=== PATIENT | male | born 2000 | race Caucasian/White ===

== ENCOUNTER 2018-06-05 15:00 | Emergency (ER) | payer OTHER ==
[~2018-06-05] VITALS: Ht 170.2 cm; Wt 70.9 kg
[2018-06-05] MEDS ORDERED: PERCOCET 5MG/325MG TAB PO ONE (15:45)
--- NOTE | 2018-06-05 16:56 | REP ---
Clinical: Right testicular pain and swelling. Comparison: Report dated 05/16/2018. Technique: Real time xie scale and color Doppler evaluation using linear high frequency and curved array transducers. Findings: While vascularity to the bilateral testicles and epididymi are relatively symmetric and there is no evidence for acute infectious/inflammatory process or torsion, the right testicle is mildly enlarged and somewhat heterogeneous having scattered anechoic striations. No discrete right testicular or epididymal mass lesion is identified. No hydroceles. No varicoceles. Left testicle and epididymis appear normal. Right testicle measures 5.4 x 3.2 x 3.6 cm. Left testicle measures 4.8 x 2.8 x 3.0 cm. Impression: Somewhat heterogeneous enlargement to the right testicle similar to prior report and without focal, discrete abnormality. No evidence for hyperemia or torsion. Findings are nonspecific and may represent an infiltrative process including but not limited to lymphoma, leukemia, disseminated intravascular coagulation. Correlation and follow up recommended. Electronically Signed by Arnol Segal MD 06/05/2018 04:48 P
[2018-06-05 17:15] VITALS: BP 120/64
[2018-06-05] MEDS ORDERED: PERC5TAB12 PO (17:22)
[2018-06-05 20:01] LABS: CHLAMYDIA DNA AMPLIFICATION NEGATIVE (NEGATIVE); GC DNA AMPLIFICATION NEGATIVE (NEGATIVE)
--- NOTE | 2018-06-08 12:21 | ED PDOC ---
Post-Departure Follow-Up ft jay richardson faxed formal report of scrotal us for fu. additionally certified ry er sent to pt. please sure pt is aware of differential diaagnosis and formal report. needs urgent fu Juan Perez MD Jun 08, 2018 12:21
== END 2018-06-05 17:35 | disposition home or self-care (01) ==
LOC: M ED 15:00
DX: N50.811 Right testicular pain (principal)

== ENCOUNTER 2018-06-10 11:30 | Emergency (ER) | payer OTHER ==
[~2018-06-10] VITALS: Ht 170.2 cm; Wt 71.4 kg
[~2018-06-10 11:30] MED LIST: PERC5TAB12 PO
[2018-06-10 11:31] VITALS: BP 169/75
[2018-06-10] MEDS ORDERED: PERC5TAB12 PO (12:10)
== END 2018-06-10 12:18 | disposition home or self-care (01) ==
LOC: M ED 11:30
DX: N50.811 Right testicular pain (principal); G89.29 Other chronic pain; N50.89 Other specified disorders of the male genital organs; F17.210 Nicotine dependence, cigarettes, uncomplicated

== ENCOUNTER 2018-06-22 13:07 | Emergency (ER) | payer OTHER ==
[~2018-06-22] VITALS: Ht 170.2 cm; Wt 70.9 kg
[2018-06-22 14:23] LABS: APPEARANCE, URINE CLEAR (CLEAR); BACTERIA, URINE AUTO NEGATIVE (NEGATIVE); BILIRUBIN, URINE AUTO NEGATIVE (NEGATIVE); BLOOD, URINE BLOOD NEGATIVE (NEGATIVE); COLOR, URINE YELLOW (YELLOW); GLUCOSE, URINE (UA) AUTO NEGATIVE (NEGATIVE); KETONE, URINE AUTO NEGATIVE (NEGATIVE); LEUKOCYTE ESTERASE, URINE AUTO NEGATIVE (NEGATIVE); NITRITE, URINE AUTO NEGATIVE (NEGATIVE); PROTEIN, URINE AUTO NEGATIVE (NEGATIVE); RBC, URINE AUTO 1 /HPF (0-3); SPECIFIC GRAVITY URINE AUTO 1.013 (1.002-1.035); SQUAMOUS EPITHELIAL CELL UR AU 0 /HPF (0-6); UROBILINOGEN, URINE AUTO 0.2 mg/dL (0.0-2.0); WBC, URINE AUTO 0 /HPF (0-3)
[2018-06-22] MEDS ORDERED: PERC5TAB12 PO ×2 (15:06→15:14)
[2018-06-22 15:12] VITALS: BP 116/60
[2018-06-22 16:08] LABS: CHLAMYDIA DNA AMPLIFICATION NEGATIVE (NEGATIVE); GC DNA AMPLIFICATION NEGATIVE (NEGATIVE)
== END 2018-06-22 15:14 | disposition home or self-care (01) ==
LOC: M ED 13:07
DX: N50.811 Right testicular pain (principal); N50.89 Other specified disorders of the male genital organs

== ENCOUNTER 2018-10-24 10:00 | Emergency (ER) | payer OTHER ==
[~2018-10-24] VITALS: Ht 170.2 cm; Wt 72.7 kg
[2018-10-24 11:09] LABS: BASO % 0.4 % (0.0-1.0); EOS # 0.1 10^3/uL (0.0-0.50); EOS % 2.1 % (0.0-3.0); HEMATOCRIT 40.6 % (42.0-52.0); HEMOGLOBIN 14.1 g/dl (13.5-17.5); LYMPH # 2.6 10^3/uL (1.5-6.5); LYMPH % 38.7 % (24.0-44.0); MEAN CORPUSCULAR HEMOGLOBIN 31.3 pg (27.0-33.0); MEAN CORPUSCULAR HGB CONC 34.7 g/dl (32.0-36.5); MEAN CORPUSCULAR VOLUME 90.2 fl (80.0-96.0); MONO # 0.5 10^3/uL (0.0-0.8); NEUTROPHILS # 3.4 10^3/uL (1.8-7.7); NEUTROPHILS % 50.7 % (36.0-66.0); PLATELET COUNT, AUTOMATED 192 10^3/uL (150-450); WHITE BLOOD COUNT 6.8 10^3/uL (4.0-10.0)
[2018-10-24 11:41] LABS: ALT/SGPT 22 U/L (12-78); BILIRUBIN,DIRECT < 0.1 MG/DL (0.0-0.2); BILIRUBIN,TOTAL 0.2 MG/DL (0.2-1.0); BLOOD UREA NITROGEN 15 MG/DL (7-18); CALCIUM LEVEL 9.4 MG/DL (8.5-10.1); CARBON DIOXIDE LEVEL 29 MEQ/L (21-32); CHLORIDE LEVEL 106 MEQ/L (98-107); CPK CREATINE PHOSPHOKINASE 214 U/L (39-308); CREATININE FOR GFR 1.06 MG/DL (0.70-1.30); FREE T4 1.05 NG/DL (0.78-1.33); GLUCOSE, FASTING 87 MG/DL (70-100); LIPASE 93 U/L (73-393); MB/CK RELATIVE INDEX 0.93 (< OR =4); POTASSIUM SERUM 4.1 MEQ/L (3.5-5.1); SODIUM LEVEL 140 MEQ/L (136-145); TOTAL PROTEIN 7.1 GM/DL (6.4-8.2); TROPONIN I < 0.02 NG/ML (< 0.10)
--- NOTE | 2018-10-24 11:44 | REP ---
CHEST, SINGLE VIEW: There is no evidence of acute infiltrate. No pleural effusion is seen. The heart is normal in size. The mediastinal silhouette is unremarkable. The visualized osseous structures are intact. IMPRESSION: No acute pulmonary disease. Electronically Signed by Ran Ramirez MD 10/24/2018 04:20 P
[2018-10-24 12:50] VITALS: BP 128/58
[2018-10-24 12:54] LABS: AMPHETAMINES LEVEL URINE NEGATIVE (NEGATIVE); BARBITURATES URINE NEGATIVE (NEGATIVE); BENZODIAZEPINES URINE NEGATIVE (NEGATIVE); CANNABINOIDS URINE NEGATIVE (NEGATIVE); COCAINE METABOLITE URINE NEGATIVE (NEGATIVE); METHADONE URINE NEGATIVE (NEGATIVE); OPIATES URINE NEGATIVE (NEGATIVE); PHENCYCLIDINE URINE NEGATIVE (NEGATIVE)
--- NOTE | 2018-10-25 05:45 | ECGEPIP ---
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
== END 2018-10-24 13:11 | disposition home or self-care (01) ==
LOC: M ED 10:00
DX: R00.2 Palpitations (principal); R07.9 Chest pain, unspecified; Z79.899 Other long term (current) drug therapy

== ENCOUNTER 2018-10-31 17:38 | Emergency (ER) | payer OTHER ==
[~2018-10-31] VITALS: Ht 170.2 cm; Wt 72.7 kg
[2018-10-31 18:38] LABS: BASO % 0.7 % (0.0-1.0); EOS # 0.2 10^3/uL (0.0-0.50); EOS % 2.6 % (0.0-3.0); HEMATOCRIT 39.5 % (42.0-52.0); HEMOGLOBIN 14.2 g/dl (13.5-17.5); LYMPH # 1.9 10^3/uL (1.5-6.5); LYMPH % 32.7 % (24.0-44.0); MEAN CORPUSCULAR HGB CONC 35.9 g/dl (32.0-36.5); MONO # 0.5 10^3/uL (0.0-0.8); MONO % 8.7 % (0.0-5.0); NEUTROPHILS # 3.2 10^3/uL (1.8-7.7); NEUTROPHILS % 55.1 % (36.0-66.0); PLATELET COUNT, AUTOMATED 192 10^3/uL (150-450); RED BLOOD COUNT 4.44 10^6/uL (4.30-6.10); WHITE BLOOD COUNT 5.8 10^3/uL (4.0-10.0)
[2018-10-31 18:52] LABS: INR 1.12; PROTHROMBIN TIME 14.1 SECONDS (11.8-14.0)
[2018-10-31 19:05] LABS: BLOOD UREA NITROGEN 18 MG/DL (7-18); CALCIUM LEVEL 8.9 MG/DL (8.5-10.1); CARBON DIOXIDE LEVEL 26 MEQ/L (21-32); CHLORIDE LEVEL 108 MEQ/L (98-107); CK-MB VALUE MASS < 1.0 NG/ML (<3.6); CPK CREATINE PHOSPHOKINASE 143 U/L (39-308); CREATININE FOR GFR 1.31 MG/DL (0.70-1.30); ETHYL ALCOHOL (ETHANOL) < 0.003 % (0.000-0.010); FREE T4 1.07 NG/DL (0.78-1.33); GLUCOSE, FASTING 84 MG/DL (70-100); MAGNESIUM LEVEL 2.3 MG/DL (1.4-2.0); POTASSIUM SERUM 3.8 MEQ/L (3.5-5.1); SODIUM LEVEL 142 MEQ/L (136-145); TROPONIN I < 0.02 NG/ML (< 0.10)
--- NOTE | 2018-10-31 19:07 | REP ---
Clinical: Syncope . Comparison: None . Findings: The ventricles, sulci, and cisterns are normal in position and appearance. Ramirez-white differentiation is maintained. No acute intracranial hemorrhage, mass/mass effect, pathology or trauma/injury. No evidence for acute infarction. No extra-axial fluid collection. Calvarium is intact. Paranasal sinuses and mastoid air cells are clear. Impression: Normal noncontrast head CT. No evidence for acute intracranial pathology or trauma/injury. Electronically Signed by Arnol Segal MD 10/31/2018 06:58 P
--- NOTE | 2018-10-31 19:11 | REP ---
Clinical: Syncope . Comparison: 10/24/2018 . Technique: PA and lateral. Findings: The mediastinum and cardiac silhouette are normal. The lung chen are clear and without acute consolidation, effusion, or pneumothorax. The skeletal structures are intact and normal. Impression: 1. No acute cardiopulmonary process. Electronically Signed by Arnol Segal MD 10/31/2018 07:02 P
[2018-10-31 20:07] LABS: AMPHETAMINES LEVEL URINE NEGATIVE (NEGATIVE); BARBITURATES URINE NEGATIVE (NEGATIVE); BENZODIAZEPINES URINE NEGATIVE (NEGATIVE); CANNABINOIDS URINE NEGATIVE (NEGATIVE); COCAINE METABOLITE URINE NEGATIVE (NEGATIVE); METHADONE URINE NEGATIVE (NEGATIVE); OPIATES URINE NEGATIVE (NEGATIVE); PHENCYCLIDINE URINE NEGATIVE (NEGATIVE)
[2018-10-31 20:25] VITALS: BP 104/59
--- NOTE | 2018-11-01 15:31 | ECGEPIP ---
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
== END 2018-10-31 20:41 | disposition home or self-care (01) ==
LOC: M ED 17:38
DX: R55 Syncope and collapse (principal); Z87.891 Personal history of nicotine dependence
CPT/HCPCS: 36415; 70450; 71046; 80048; 80307; 82550; 82553; 83605; 83735; 84439; 84443; 84484; 85025; 85610; 93005; 93041; 94760; 99285; G0480

== ENCOUNTER 2018-11-02 10:04 | Observation (INO) | payer OTHER ==
[~2018-11-02] VITALS: Ht 170.2 cm; Wt 69.9 kg
[2018-11-02 11:16] LABS: BASO # 0.1 10^3/uL (0.0-0.2); BASO % 0.9 % (0.0-1.0); EOS # 0.6 10^3/uL (0.0-0.50); EOS % 8.2 % (0.0-3.0); HEMOGLOBIN 14.2 g/dl (13.5-17.5); LYMPH % 29.5 % (24.0-44.0); MEAN CORPUSCULAR HEMOGLOBIN 31.8 pg (27.0-33.0); MEAN CORPUSCULAR HGB CONC 35.5 g/dl (32.0-36.5); MEAN CORPUSCULAR VOLUME 89.7 fl (80.0-96.0); MONO # 0.5 10^3/uL (0.0-0.8); MONO % 6.6 % (0.0-5.0); NEUTROPHILS # 3.7 10^3/uL (1.8-7.7); NEUTROPHILS % 54.7 % (36.0-66.0); PLATELET COUNT, AUTOMATED 187 10^3/uL (150-450); RED BLOOD COUNT 4.46 10^6/uL (4.30-6.10); WHITE BLOOD COUNT 6.8 10^3/uL (4.0-10.0)
[2018-11-02 11:26] LABS: INR 1.14; PROTHROMBIN TIME 14.3 SECONDS (11.8-14.0)
[2018-11-02 11:27] LABS: PARTIAL THROMBOPLASTIN TIME 30.9 SECONDS (25.0-38.4)
[2018-11-02 11:47] LABS: ALBUMIN 4.1 GM/DL (3.2-5.2); ALT/SGPT 22 U/L (12-78); BILIRUBIN,DIRECT 0.1 MG/DL (0.0-0.2); BILIRUBIN,TOTAL 0.4 MG/DL (0.2-1.0); BLOOD UREA NITROGEN 19 MG/DL (7-18); CALCIUM LEVEL 9.1 MG/DL (8.5-10.1); CARBON DIOXIDE LEVEL 28 MEQ/L (21-32); CHLORIDE LEVEL 108 MEQ/L (98-107); CK-MB VALUE MASS 1.3 NG/ML (<3.6); CPK CREATINE PHOSPHOKINASE 136 U/L (39-308); CREATININE FOR GFR 1.15 MG/DL (0.70-1.30); GLUCOSE, FASTING 87 MG/DL (70-100); LIPASE 84 U/L (73-393); MB/CK RELATIVE INDEX 0.96 (< OR =4); POTASSIUM SERUM 3.8 MEQ/L (3.5-5.1); SODIUM LEVEL 141 MEQ/L (136-145); THYROID STIMULATING HORMONE 0.858 uIU/ML (0.463-3.98); TOTAL PROTEIN 6.9 GM/DL (6.4-8.2); TROPONIN I < 0.02 NG/ML (< 0.10)
--- NOTE | 2018-11-02 11:59 | REP ---
Clinical: Acute chest pain . Comparison: 10/31/2018 . Technique: PA and lateral. Findings: The mediastinum and cardiac silhouette are normal. The lung chen are clear and without acute consolidation, effusion, or pneumothorax. The skeletal structures are intact and normal. Impression: 1. No acute cardiopulmonary process. Electronically Signed by Arnol Segal MD 11/02/2018 11:51 A
[2018-11-02 12:16] LABS: AMPHETAMINES LEVEL URINE NEGATIVE (NEGATIVE); BARBITURATES URINE NEGATIVE (NEGATIVE); BENZODIAZEPINES URINE NEGATIVE (NEGATIVE); CANNABINOIDS URINE NEGATIVE (NEGATIVE); COCAINE METABOLITE URINE NEGATIVE (NEGATIVE); METHADONE URINE NEGATIVE (NEGATIVE); OPIATES URINE NEGATIVE (NEGATIVE); PHENCYCLIDINE URINE NEGATIVE (NEGATIVE)
--- NOTE | 2018-11-02 12:19 | REP ---
Clinical: Slurred speech . Comparison: 10/31/2018 . Findings: The ventricles, sulci, and cisterns are normal in position and appearance. Ramirez-white differentiation is maintained. No acute intracranial hemorrhage, mass/mass effect, pathology or trauma/injury. No evidence for acute infarction. No extra-axial fluid collection. Calvarium is intact. Paranasal sinuses and mastoid air cells are clear. Impression: Normal noncontrast head CT. No evidence for acute intracranial pathology or trauma/injury. Electronically Signed by Arnol Segal MD 11/02/2018 12:11 P
[2018-11-02] MEDS ORDERED: CLAR10CA3 PO (12:31)
[2018-11-02] MEDS ORDERED: ISOVUE-370 76% 100ML VIAL (Q9967) As Ordered ONE (12:42)
--- NOTE | 2018-11-02 13:20 | REP ---
Clinical: Acute chest pain. Syncope. Technique: Axial contrast enhanced images from the thoracic inlet to the upper abdomen using 100 ml Isovue 370 intravenous contrast material with coronal and sagittal re-formations. Findings: Satisfactory enhancement of the pulmonary vasculature is achieved and no filling defects are identified to suggest pulmonary embolus. Thoracic aorta is normal caliber without aneurysm or dissection. Heart and pericardium are normal. Bilateral lung chen are well aerated and clear without acute pulmonary parenchymal consolidation or atelectasis. No nodule or mass lesion. No pleural effusion/reaction. No pneumothorax. No adenopathy. Impression: No evidence for pulmonary embolus. No acute pleuroparenchymal or mediastinal process. Electronically Signed by Arnol Segal MD 11/02/2018 01:12 P
[2018-11-02] MEDS ORDERED: ACETAMINOPHEN TAB 650MG DOSE (2X325MG) PO PRN (15:15)
[2018-11-02] MEDS ORDERED: MOM 30ML SUSPENSION UDC PO PRN (15:15)
[2018-11-02] MEDS ORDERED: MAALOX 30 ML SUSP *UDC PO PRN (15:15)
--- NOTE | 2018-11-02 15:44 | HPEPDOC ---
General Date of Admission Nov 02, 2018 at 15:01 Date of Service: Nov 02, 2018 Attending Physician: GUME MENDEZ MD Chief Complaint The patient is a 17-year-old male admitted with a reason for visit of Syncopal Episodes. Source: Patient Timing/Duration: Week(s) (2 weeks) Severity: Moderate, Severe Associated Symptoms: Shortness of breath, Syncope Home Medications Scheduled Loratadine (Claritin) 10 Mg Capsule, 10 MG PO DAILY, (Reported) Allergies Coded Allergies: No Known Allergies (Unverified , 10/31/18) Past Medical History Medical History None, but patient explains that he once in a while gets bronchitis starts wheezing and he uses the inhaler and it goes away. I'm not sure whether he has exercise-induced asthma or asthma per se, but he never been diagnosed with Surgical History None Family History Significant Family History: No pertinent family hx Social History * Smoker: Denies Alcohol: Denies Drugs: denies Psychosocial History: No pertinent psych hx A-FIB/CHADSVASC A-FIB History Current/History of A-Fib/PAF?: No Review of Systems Constitutional: Denies: Chills, Fever, Malaise, Night Sweats, Weakness, Fatigue, Weight Loss, Lethargy, Other Eyes: Denies: Pain, Vision change, Conjunctivae inflammation, Eyelid inflammation, Redness, Other ENT: Denies: Head Aches, Ear Pain, Dysphagia, Sinus Congestion, Post Nasal Drip, Sore Throat, Epistaxis, Other Symptoms Skin: Denies: Rash, Lesions, Jaundice, Bruising, Itching, Dry, Breakdown, Nail Changes, Other Pulmonary: Reports: Dyspnea Cardiovascular: Reports: Chest Pain Gastrointestinal: Denies: Nausea, Vomiting, Abdominal Pain, Diarrhea, Const ipation, Melena, Hematochezia, Other Symptoms Genitourinary: Denies: Dysuria, Frequency, Incontinence, Hematuria, Retention, Other Symptoms Hematologic: Denies: Bruising, Bleeding Excessively, Petecchia, Purpura, Enlarged Lymph Nodes, Other Hematologic Endocrine: Denies: Polydipsia, Polyphagia, Polyuria, Heat Intolerance, Cold Intolerance, Other Endocrine Sx Musculoskeletal: Denies: Neck Pain, Back Pain, Shoulder Pain, Arm Pain, Hand Pain, Leg Pain, Foot Pain, Joint Pain, Muscle Pain, Spasms, Other Symptoms Neurological: Reports: Numbness Psych: Denies: Mood Normal, Anxiety, Depression, Memory Issues, Thoughts of Self Harm, Anger, Thoughts of Harming Other, Other Psych Physical Examination General Exam: Positive: Alert, Cooperative Eye Exam: Positive: PERRLA, Conjunctiva & lids normal ENT Exam: Positive: Atraumatic Neck Exam: Positive: Supple Chest Exam: Positive: Clear to auscultation, Normal air movement Heart Exam: Positive: Rate Normal, Normal S1 Telemetry: Positive: Sinus, Bradycardia Abdomen Exam: Positive: Normal bowel sounds, Soft Extremity Exam: Positive: Normal pulses Skin Exam: Positive: Nl turgor and temperature Neuro Exam: Positive: Normal Speech, Cranial Nerves 3-12 NL Psych Exam: Positive: Mental status NL, Mood NL, Oriented x 3 Vital Signs Vital Signs Date Time Temp Pulse Resp B/P (MAP) Pulse Ox O2 Delivery O2 Flow Rate FiO2 11/02/18 14:09 98.1 67 14 97 11/02/18 14:00 117/59 (78) 11/02/18 11:46 Room Air Laboratory Data Labs 24H Laboratory Tests 2 11/02/18 11:01: Immature Granulocyte % (Auto) 0.1, White Blood Count 6.8, Red Blood Count 4.46, Hemoglobin 14.2, Hematocrit 40.0L, Mean Corpuscular Volume 89.7, Mean Corpuscular Hemoglobin 31.8, Mean Corpuscular Hemoglobin Concent 35.5, Red Cell Distribution Width 11.7, Platelet Count 187, Neutrophils (%) (Auto) 54.7, Lymphocytes (%) (Auto) 29.5, Monocytes (%) (Auto) 6.6H, Eosinophils (%) (Auto) 8.2H, Basophils (%) (Auto) 0.9, Neutrophils # (Auto) 3.7, Lymphocytes # (Auto) 2 .0, Monocytes # (Auto) 0.5, Eosinophils # (Auto) 0.6H, Basophils # (Auto) 0.1, Nucleated Red Blood Cells % (auto) 0.0, Prothrombin Time 14.3H, Prothromb Time International Ratio 1.14, Activated Partial Thromboplast Time 30.9, Anion Gap 5L, Calcium Level 9.1, Aspartate Amino Transf (AST/SGOT) 19, Alanine Aminotransferase (ALT/SGPT) 22, Alkaline Phosphatase 42L, Total Bilirubin 0.4, Direct Bilirubin 0.1, Total Creatine Kinase 136, Creatine Kinase MB 1.3, Creatine Kinase MB Relative Index 0.96, Troponin I < 0.02, Total Protein 6.9, Albumin 4.1, Albumin/Globulin Ratio 1.46, Lipase 84, Thyroid Stimulating Hormone (TSH) 0.858, Free Thyroxine 1.00 11/02/18 11:38: Urine Color YELLOW, Urine Appearance CLEAR, Urine pH 6.0, Urine Specific [place] 1.010, Urine Protein NEGATIVE, Urine Glucose (UA) NEGATIVE, Urine Ketones NEGATIVE, Urine Blood NEGATIVE, Urine Nitrite NEGATIVE, Urine Bilirubin NEGATIVE, Urine Urobilinogen 0.2, Urine Leukocyte Esterase NEGATIVE, Urine WBC (Auto) 0, Urine RBC (Auto) 3, Urine Hyaline Casts (Auto) 0, Urine Bacteria (Auto) NEGATIVE, Urine Squamous Epithelial Cells 0, Urine Mucus (Auto) SMALL, Urine Sperm (Auto) , Urine Amphetamines Screen NEGATIVE, Urine Benzodiazepines Screen NEGATIVE, Urine Opiates Screen NEGATIVE, Urine Methadone Screen NEGATIVE, Urine Barbiturates Screen NEGATIVE, Urine Phencyclidine Screen NEGATIVE, Urine Cocaine Metabolite Screen NEGATIVE, Urine Cannabinoids Screen NEGATIVE CBC/BMP Laboratory Tests 11/02/18 11:01 Red Blood Count 4.46, Mean Corpuscular Volume 89.7, Mean Corpuscular Hemoglobin 31.8, Mean Corpuscular Hemoglobin Concent 35.5, Red Cell Distribution Width 11.7, Neutrophils (%) (Auto) 54.7, Lymphocytes (%) (Auto) 29.5, Monocytes (%) (Auto) 6.6 H, Eosinophils (%) (Auto) 8.2 H, Basophils (%) (Auto) 0.9, Neutrophils # (Auto) 3.7, Lymphocytes # (Auto) 2.0, Monocytes # (Auto) 0.5, Eos inophils # (Auto) 0.6 H, Basophils # (Auto) 0.1 Problems (1) Syncopal episodes Status: Acute Response to Treatment: Stable Problem Text: Etiology of syncope is unclear at the present time This is the second time he had a syncopal episode and was brought to ED All workup including CT head, CT of chest, chest x-ray and blood work essentially within normal limits Will order serial troponins Carotid Dopplers Echocardiogram Telemetry monitoring EKG in a.m. No need for DVT prophylaxis as patient is low risk for DVT, as he is ambulatory Close observation (2) Chest pain Status: Acute Response to Treatment: Stable Problem Text: Atypical chest pain, etiology unclear EKG essentially within normal limits First troponin negative. Serial troponins ordered Telemetry monitoring Echocardiogram Activity as tolerated Diet regular Plan / VTE VTE Prophylaxis Ordered?: No VTE Exclusion Mechanical Proph: Low Risk for VTE GUME MENDEZ MD Nov 02, 2018 15:44
--- NOTE | 2018-11-02 17:45 | REP ---
Bilateral carotid artery duplex ultrasound: Peak flow velocity analysis: RIGHT LEFT ICA Peak flow velocity cm/sec 116.2 108.5 ICA Diastolic flow velocity cm/sec 34.8 26 point Y ICA/CCA Ratio 0.80 0.92 ECA Peak flow velocity cm/sec 145.1 138.5 CCA Peak flow velocity cm/sec 161.4 191.6 There is minimal vascular atheromatous plaque bilaterally. The peak flow velocities are normal. The findings indicate no stenosis on the right on the left. There is antegrade flow in the vertebral arteries bilaterally. Impression: No stenosis on the right on the left. Electronically Signed by Ran Sutherland MD 11/02/2018 05:36 P
[2018-11-02 20:00] VITALS: BP 116/54
[2018-11-02] MEDS: DOCUSATE SODIUM 100 MG CAP PO SCH (20:58)
--- NOTE | 2018-11-02 21:42 | ECGEPIP ---
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
[2018-11-02 23:59] VITALS: BP 129/57
[2018-11-03 04:00] VITALS: BP 107/55
[2018-11-03 06:21] LABS: MEAN CORPUSCULAR HEMOGLOBIN 31.7 pg (27.0-33.0); MEAN CORPUSCULAR HGB CONC 35.7 g/dl (32.0-36.5); MEAN CORPUSCULAR VOLUME 88.8 fl (80.0-96.0); PLATELET COUNT, AUTOMATED 207 10^3/uL (150-450); RED BLOOD COUNT 4.73 10^6/uL (4.30-6.10); WHITE BLOOD COUNT 7.1 10^3/uL (4.0-10.0)
[2018-11-03 06:52] LABS: ALBUMIN 4.1 GM/DL (3.2-5.2); ALT/SGPT 22 U/L (12-78); BILIRUBIN,TOTAL 0.5 MG/DL (0.2-1.0); BLOOD UREA NITROGEN 16 MG/DL (7-18); CALCIUM LEVEL 8.8 MG/DL (8.5-10.1); CARBON DIOXIDE LEVEL 27 MEQ/L (21-32); CHLORIDE LEVEL 107 MEQ/L (98-107); CREATININE FOR GFR 1.07 MG/DL (0.70-1.30); GLUCOSE, FASTING 94 MG/DL (70-100); MAGNESIUM LEVEL 2.4 MG/DL (1.4-2.0); POTASSIUM SERUM 3.9 MEQ/L (3.5-5.1); SODIUM LEVEL 140 MEQ/L (136-145); TOTAL PROTEIN 7.2 GM/DL (6.4-8.2); TROPONIN I < 0.02 NG/ML (< 0.10)
[2018-11-03 08:00] VITALS: BP 106/54
[2018-11-03] MEDS: DOCUSATE SODIUM 100 MG CAP PO SCH (08:43)
--- NOTE | 2018-11-03 10:55 | DS.PDOC ---
Discharge Summary General Date of Admission Nov 02, 2018 at 15:01 Date of Discharge 06/05/2018 Attending Physician: GUME MENDEZ MD Discharge Summary PROCEDURES PERFORMED DURING STAY: None. ADMITTING DIAGNOSES: 1. Syncope, chest pain. DISCHARGE DIAGNOSES: 1. Syncope and chest pain of unknown etiology. COMPLICATIONS/CHIEF COMPLAINT: Syncopal Episodes. HISTORY OF PRESENT ILLNESS: 17 years old white male was admitted with complaining of left-sided chest pain with radiation to left arm followed by an episode of palpitation and a syncopal episode. HOSPITAL COURSE: Patient was admitted for observation purposes only. CT of the head. CTA of chest, chest x-ray, EKG, troponins were essentially within normal limits Patient also had an echocardiogram done , as per echo take was read by Dr. Trammell which was within normal limit, but he did not dictate the report yet. normal He will be discharged home. Most likely cause of symptom symptoms is probably anxiety disorder. No evidence of any organic disease was found during this admission. DISCHARGE MEDICATIONS: Please see below. ALLERGIES: Please see below. PHYSICAL EXAMINATION ON DISCHARGE: VITAL SIGNS: Please see below. GENERAL: Within normal limits HEENT: PERRLA NECK: Supple CARDIOVASCULAR EXAMINATION: S1, S2, regular RESPIRATORY EXAMINATION: Clear to A&P ABDOMINAL EXAMINATION: , Soft, nontender. Once was present EXTREMITIES: No clubbing, cyanosis, edema SKIN: Normal NEUROLOGICAL EXAMINATION: No focal motor sensory deficit PSYCHIATRIC EXAMINATION: LABORATORY DATA: Please see below. IMAGING: [Chest x-ray within normal limits PROGNOSIS: Prognosis good ACTIVITY: As tolerated. DIET: Tolerated DISCHARGE PLAN: With PCP in one week DISPOSITION: . DISCHARGE INSTRUCTIONS: 1. As above. ITEMS TO FOLLOWUP ON ON OUTPATIENT: 1. Follow with PCP in one week. DISCHARGE CONDITION: Stable. TIME SPENT ON DISCHARGE: 45 minutes. Vital Signs/I&Os Vital Signs Date Time Temp Pulse Resp B/P (MAP) Pulse Ox O2 Delivery O2 Flow Rate FiO2 11/03/18 08:00 98.0 54 18 106/54 (71) 97 11/02/18 19:30 Room Air I&O- Last 24 Hours up to 6 AM 11/03/18 06:00 Intake Total 150 ml Output Total 0 ml Balance 150 ml Laboratory Data Labs 24H Laboratory Tests 2 11/02/18 11:01: Immature Granulocyte % (Auto) 0.1, White Blood Count 6.8, Red Blood Count 4.46, Hemoglobin 14.2, Hematocrit 40.0L, Mean Corpuscular Volume 89.7, Mean Corpuscular Hemoglobin 31.8, Mean Corpuscular Hemoglobin Concent 35.5, Red Cell Distribution Width 11.7, Platelet Count 187, Neutrophils (%) (Auto) 54.7, Lymphocytes (%) (Auto) 29.5, Monocytes (%) (Auto) 6.6H, Eosinophils (%) (Auto) 8.2H, Basophils (%) (Auto) 0.9, Neutrophils # (Auto) 3.7, Lymphocytes # (Auto) 2.0, Monocytes # (Auto) 0.5, Eosinophils # (Auto) 0.6H, Basophils # (Auto) 0.1, Nucleated Red Blood Cells % (auto) 0.0, Prothrombin Time 14.3H, Prothromb Time International Ratio 1.14, Activated Partial Thromboplast Time 30.9, Anion Gap 5L, Calcium Level 9.1, Aspartate Amino Transf (AST/SGOT) 19, Alanine Aminotransferase (ALT/SGPT) 22, Alkaline Phosphatase 42L, Total Bilirubin 0.4, Direct Bilirubin 0.1, Total Creatine Kinase 136, Creatine Kinase MB 1.3, Creatine Kinase MB Relative Index 0.96, Troponin I < 0.02, Total Protein 6.9, Albumin 4.1, Albumin/Globulin Ratio 1.46, Lipase 84, Thyroid Stimulating Hormone (TSH) 0.858, Free Thyroxine 1.00 11/02/18 11:38: Urine Color YELLOW, Urine Appearance CLEAR, Urine pH 6.0, Urine Specific [place] 1.010, Urine Protein NEGATIVE, Urine Glucose (UA) NEGATIVE, Urine Ketones NEGATIVE, Urine Blood NEGATIVE, Urine Nitrite NEGATIVE, Urine Bilirubin NEGATIVE, Urine Urobilinogen 0.2, Urine Leukocyte Esterase NEGATIVE, Urine WBC (Auto) 0, Urine RBC (Auto) 3, Urine Hyaline Casts (Auto) 0, Urine Bacteria (Auto) NEGATIVE, Urine Squamous Epithelial Cells 0, Urine Mucus (Auto) SMALL, Urine Sperm (Auto) , Urine Amphetamines Screen NEGATIVE, Urine Benzodiazepines Screen NEGATIVE, Urine Opiates Screen NEGATIVE, Urine Methadone Screen NEGATIVE, Urine Barbiturates Screen NEGATIVE, Urine Phencyclidine Screen NEGATIVE, Urine Cocaine Metabolite Screen NEGATIVE, Urine Cannabinoids Screen NEGATIVE 11/02/18 20:59: Troponin I < 0.02 11/03/18 05:42: Nucleated Red Blood Cells % (auto) 0.0, Anion Gap 6L, Calcium Level 8.8, Aspartate Amino Transf (AST/SGOT) 19, Alanine Aminotransferase (ALT/SGPT) 22, Alkaline Phosphatase 41L, Total Bilirubin 0.5, Troponin I < 0.02, Total Protein 7.2, Albumin 4.1, Albumin/Globulin Ratio 1.32, Blood Urea Nitrogen 16, Creatinine 1.07, Sodium Level 140, Potassium Level 3.9, Chloride Level 107, Carbon Dioxide Level 27, Magnesium Level 2.4H CBC/BMP Laboratory Tests 11/02/18 11:01 Red Blood Count 4.46, Mean Corpuscular Volume 89.7, Mean Corpuscular Hemoglobin 31.8, Mean Corpuscular Hemoglobin Concent 35.5, Red Cell Distribution Width 11.7, Neutrophils (%) (Auto) 54.7, Lymphocytes (%) (Auto) 29.5, Monocytes (%) (Auto) 6.6 H, Eosinophils (%) (Auto) 8.2 H, Basophils (%) (Auto) 0.9, Neutrophils # (Auto) 3.7, Lymphocytes # (Auto) 2.0, Monocytes # (Auto) 0.5, Eosinophils # (Auto) 0.6 H, Basophils # (Auto) 0.1 11/03/18 05:42 Red Blood Count 4.73, Mean Corpuscular Volume 88.8, Mean Corpuscular Hemoglobin 31.7, Mean Corpuscular Hemoglobin Concent 35.7, Red Cell Distribution Width 11.6, Calcium Level 8.8, Aspartate Amino Transf (AST/SGOT) 19, Alanine Aminot ransferase (ALT/SGPT) 22, Alkaline Phosphatase 41 L, Total Bilirubin 0.5, Total Protein 7.2, Albumin 4.1 Discharge Medications Scheduled Loratadine (Claritin) 10 Mg Capsule, 10 MG PO DAILY, (Reported) Allergies Coded Allergies: No Known Allergies (Unverified , 10/31/18) GUME MENDEZ MD Nov 03, 2018 10:55
[2018-11-03 11:28] VITALS: BP 121/59
--- NOTE | 2018-11-04 00:06 | ECGEPIP ---
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
--- NOTE | 2018-11-04 00:09 | ECGEPIP ---
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
--- NOTE | 2018-11-04 17:00 | ECHO ---
DATE OF PROCEDURE: 11/03/2018 AGE: 17 GENDER: Male INPATIENT: Emergency room. REFERRING PHYSICIAN: Dr. Vickey Phelan INDICATION: Syncope. MEASUREMENTS: 2-D measurements: RV: 3.8 cm LV: 4.7 cm Septum: 0.9 cm Posterior wall: 0.9 cm Aortic root: 2.8 cm LA: 3.4 cm LVEF: 65% Doppler measurements: AV: 1.3 m/sec LVOT: 0.87 m/sec LVOT Diameter: 2.1 cm MV-E: 70 A: 45 E:A ratio: 1.5 Early mitral deceleration time: 292 milliseconds E-Prime: 12 A-Prime: 5 E/E prime ratio: 5.7 PV: 0.95 m/sec Pulmonary artery acceleration time: 169 ms RVSP: 19 mmHg COMMENTS: Marked sinus bradycardia without interventricular conduction disturbance. M-mode and two-dimensional echocardiography was performed with pulsed, continuous wave, color flow and tissue Doppler studies. Normal left ventricular size, wall thickness and wall motion. Normal left atrial size and Doppler assessment of LV diastolic function and estimated mean left atrial pressure. Normal right heart chamber sizes and motion with normal estimated pulmonary arterial pressure. Normal IVC size and collapse against an elevated central venous pressure. Normal appearing and functioning valvular structures. Normal aortic root size. No apparent intracardiac mass or pericardial effusion. No apparent structural or functional cardiac abnormality noted on his echocardiographic/Doppler study.
== END 2018-11-03 17:15 | disposition home or self-care (01) ==
LOC: M ED 10:04 → M ED INP 15:01 → M PCU 20:04
PROVIDERS: ADMIT Internal Medicine; ATTEND Internal Medicine
DX: R55 Syncope and collapse (principal); R07.9 Chest pain, unspecified; R00.2 Palpitations; Z79.899 Other long term (current) drug therapy
CPT/HCPCS: 36415; 70450; 71046; 71275; 80048; 80053; 80076; 80307; 81001; 82550; 82553; 83690; 83735; 84439; 84443; 84484; 85025; 85027; 85610; 85730; 93005; 93041; 93306; 93880; 94760; 99285; Q9967

== ENCOUNTER 2018-11-09 10:35 | Emergency (ER) | payer OTHER ==
[~2018-11-09 10:35] MED LIST changes: +CLAR10CA3 PO
[2018-11-09 10:44] VITALS: BP 134/72
[2018-11-09] MEDS ORDERED: BUPR150T3 PO (10:46)
--- NOTE | 2018-11-10 10:28 | ECGEPIP ---
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
== END 2018-11-09 13:46 | disposition home or self-care (01) ==
LOC: M ED 10:35 → EDBD 10:35 → M ED 13:46
DX: F43.0 Acute stress reaction (principal); N50.811 Right testicular pain

== ENCOUNTER 2018-11-24 08:14 | Emergency (ER) | payer OTHER ==
[~2018-11-24] VITALS: Ht 170.2 cm; Wt 72.7 kg
[~2018-11-24 08:14] MED LIST changes: +BUPR150T3 PO
[2018-11-24 10:00] VITALS: BP 118/68
== END 2018-11-24 10:11 | disposition home or self-care (01) ==
LOC: M ED 08:14
DX: R55 Syncope and collapse (principal); Z79.899 Other long term (current) drug therapy

== ENCOUNTER 2020-10-21 00:46 | Emergency (ER) | payer OTHER ==
[~2020-10-21] VITALS: Ht 170.2 cm; Wt 75.5 kg
[~2020-10-21 00:46] MED LIST changes: +BUPR150T12 PO; -BUPR150T3 PO
[2020-10-21 00:56] VITALS: BP 140/69
[2020-10-21] MEDS ORDERED: PSEUDOEPHEDRINE 30 MG TAB PO STA (01:14)
[2020-10-21] MEDS ORDERED: BENZONATATE 100 MG CAP PO ONE (01:15)
[2020-10-21] MEDS: ALBUTEROL 90 MCG/ACT 8GM HFA INHALER INH SCH ×3 (01:25→01:33)
[2020-10-21] MEDS ORDERED: FLON1SPR NARES (02:15)
[2020-10-21] MEDS ORDERED: PROAAER10 INH (02:15)
[2020-10-21] MEDS ORDERED: ALBUTEROL 90 MCG/ACT 8GM HFA INHALER INH ONE (02:15)
[2020-10-21] MEDS ORDERED: PSEU120T19 PO (02:15)
[2020-10-21] MEDS ORDERED: TESS100C PO (02:16)
== END 2020-10-21 02:21 | disposition home or self-care (01) ==
LOC: M ED 00:46
DX: J06.9 Acute upper respiratory infection, unspecified (principal); R06.2 Wheezing; R09.81 Nasal congestion; Z79.899 Other long term (current) drug therapy

== ENCOUNTER 2020-12-23 10:49 | Emergency (ER) | payer OTHER ==
[~2020-12-23] VITALS: Ht 170.2 cm; Wt 75.0 kg
[~2020-12-23 10:49] MED LIST changes: +FLON1SPR NARES; +PROAAER10 INH; +PSEU120T19 PO; +TESS100C PO
[2020-12-23 11:21] VITALS: BP 114/55
--- NOTE | 2020-12-23 11:41 | REP ---
INDICATION: fall, hit occipital area +LOC. COMPARISON: Comparison study is from November 02, 2018.. TECHNIQUE: Helical scanning is acquired. 5 mm axial images were reformatted. Coronal MPR images were generated. FINDINGS: Bone window settings demonstrate an intact bony calvarium. There is no evidence of skull fracture or incidental bony calvarial lesion. The visualized paranasal sinuses appear clear. No intraorbital abnormality is seen. On soft tissue window setting images; the lateral, third, and fourth ventricles are normal in size and position. Ramirez-white differentiation pattern is normal above and below the tentorium. There are is no evidence of intracranial hemorrhage. No mass, edema, infarction, or midline shift is seen. No extra-axial fluid collection is appreciated. IMPRESSION: Negative noncontrast head CT. <Electronically signed by Bala Patel > 12/23/20 0713
--- NOTE | 2020-12-23 11:42 | REP ---
INDICATION: cervical spine tenderness, fell from chair. COMPARISON: None. TECHNIQUE: Helical scanning is acquired and overlapping 2 mm high resolution axial images were generated and reviewed at bone and soft tissue window settings. Coronal and sagittal multiplanar re-formations images are generated. FINDINGS: There is no evidence of cervical spine element fracture. No skull base fracture is seen. Cervical vertebral body heights are preserved. Alignment is normal. Facet joints are normally aligned bilaterally at each cervical level on multiplanar re-formations images. There is no evidence of intraspinal or paraspinal hematoma. No extra vertebral abnormality is seen. IMPRESSION: Negative CT study of the cervical spine without contrast. No fracture seen. <Electronically signed by Bala Patel > 12/23/20 [id number]
[2020-12-23] MEDS ORDERED: ACETAMINOPHEN 500 MG TAB PO ONE (11:45)
--- NOTE | 2020-12-23 12:50 | REP ---
INDICATION: fall lateral knee pain. COMPARISON: None. TECHNIQUE: Five views of the right knee are provided. FINDINGS: Five views of the right knee demonstrate normal bones, joints, and soft tissues. No fracture or subluxation is seen. No opaque foreign body noted. There is a normal fabella. IMPRESSION: Negative right knee series. <Electronically signed by Bala Patel > 12/23/20 [id number]
== END 2020-12-23 12:55 | disposition home or self-care (01) ==
LOC: EDBD 10:49 → M ED 10:49
DX: S06.0X9A Concussion with loss of consciousness of unspecified duration, initial encounter (principal); M25.561 Pain in right knee; W07.XXXA Fall from chair, initial encounter; Y92.019 Unspecified place in single-family (private) house as the place of occurrence of the external cause; Y93.9 Activity, unspecified; Y99.9 Unspecified external cause status; F17.290 Nicotine dependence, other tobacco product, uncomplicated; Z79.899 Other long term (current) drug therapy

== ENCOUNTER 2021-02-03 07:21 | Emergency (ER) | payer OTHER ==
[~2021-02-03] VITALS: Ht 170.2 cm; Wt 73.6 kg
[2021-02-03] MEDS ORDERED: LIDOCAINE 2% W/ EPINEPHRINE 1.7 ML DENTAL INJ SM ONE (08:00)
[2021-02-03] MEDS ORDERED: HYDR-3713 PO (09:18)
[2021-02-03] MEDS ORDERED: PERI0.126 PO (09:18)
[2021-02-03] MEDS ORDERED: AMOX500C PO (09:18)
[2021-02-03 09:30] VITALS: BP 132/70
== END 2021-02-03 09:36 | disposition home or self-care (01) ==
LOC: M ED 07:21
DX: K08.89 Other specified disorders of teeth and supporting structures (principal); F90.9 Attention-deficit hyperactivity disorder, unspecified type

== ENCOUNTER 2021-02-07 12:21 | Emergency (ER) | payer OTHER ==
[~2021-02-07] VITALS: Ht 170.2 cm; Wt 73.7 kg
[~2021-02-07 12:21] MED LIST changes: +AMOX500C PO; +HYDR-3713 PO; +PERI0.126 PO
[2021-02-07 15:39] VITALS: BP 140/79
== END 2021-02-07 15:41 | disposition home or self-care (01) ==
LOC: M ED 12:21
DX: K08.89 Other specified disorders of teeth and supporting structures (principal); Z79.899 Other long term (current) drug therapy

== ENCOUNTER 2021-04-14 06:33 | Emergency (ER) | payer OTHER ==
[~2021-04-14] VITALS: Ht 170.2 cm; Wt 73.7 kg
[2021-04-14 06:33] VITALS: BP 141/81
--- OUTSIDE RECORDS SUMMARY | 2021-04-14 06:41 | CCD ---
Author Author [facility] Organization [facility] Address Unknown Phone Unavailable Support Name Relationship Address Phone CASSIE THURMAN Next Of Kin [phone] [place] [address] Unavailable UNKNOWN Next Of Kin Unknown Unavailable unk, unk Next Of Kin u u, u u [employer] Next Of Kin [address] [place] [address] Unavailable BETH JEAN Next [place] [address] [place] [address] Re-disclosure Warning The records that you are about to access may contain information from federally-assisted alcohol or drug abuse programs. If such information is present, then the following federally mandated warning applies: This information has been disclosed to you from records protected by federal confidentiality rules (42 CFR part 2). The federal rules prohibit you from making any further disclosure of this information unless further disclosure is expressly permitted by the written consent of the person to whom it pertains or as otherwise permitted by 42 CFR part 2. A general authorization for the release of medical or other information is NOT sufficient for this purpose. The Federal rules restrict any use of the information to criminally investigate or prosecute any alcohol or drug abuse patient.The records that you are about to access may contain highly sensitive health information, the redisclosure of which is protected by Article 27-F of the [facility] Public Health law. If you continue you may have access to information: Regarding HIV / AIDS; Provided by facilities licensed or operated by the [facility] Office of Mental Health; or Provided by the [facility] Office for People With Developmental Disabilities. If such information is present, then the following [facility] mandated warning applies: This information has been disclosed to you from confidential records which are protected by state law. State law prohibits you from making any further disclosure of this information without the specific written consent of the person to whom it pertains, or as otherwise permitted by law. Any unauthorized further disclosure in violation of state law may result in a fine or snf sentence or both. A general authorization for the release of medical or other information is NOT sufficient authorization for further disc losure. Family History Family Member Name Family Member Gender Family Member Status Date o f Status Description Data Source(s) Unknown Male Problem MEDENT ([facility]) Immunizations Vaccine Date Status Description Data Source(s) COVID-19 VACCINE Pfizer 07/03/2020 12:00:00 AM EST completed [facility] Vaccine Series Complete: NOThis Data was Submitted to [facility] Via [employer]. Medications No Information Insurance Providers Payer name Policy type / Coverage type Policy ID Covered green party ID Covered green party's relationship to ross Policy Ross Plan Information [employer] [place] [id number] SP [id number] EAST [id number] SP [id number] SELF PAY EAST [id number] SP [id number] 40 [place] [employer] Commercial [id number] Self [id number] [place] [employer] Commercial [id number] Self [id number] EAST ACTIVE DUTY [id number] SP [id number] [place] [employer] Commercial [id number] Self [id number] [place] [employer] [place] [id number] 18 [id number] [place] [employer] - [place] [id number] 18 [id number] EAST [employer] - O/P [id number] 18 [id number] Problems, Conditions, and Diagnoses No Information Surgeries/Procedures No Information Results ID Date Data Source [id number] 05/14/2020 11:48:00 AM EST [facility] Name Value Range Interpretation Code Description Data Sandhya rce(s) Supporting Document(s) SARS coronavirus 2 RNA Not Detected [facility] [place] This lab was ordered by [facility] and reported by [facility]. Procedure Social History No Information
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
--- OUTSIDE RECORDS SUMMARY | 2021-04-14 10:23 | CCD ---
Author Author [facility] Organization [facility] Address Unknown Phone Unavailable Support Name Relationship Address Phone CASSIE THURMAN Next Of Kin [phone] [place] [address] Unavailable UNKNOWN Next Of Kin Unknown Unavailable unk, unk Next Of Kin u u, u u [employer] Next Of Kin [address] [place] [address] Unavailable BETH JEAN Next [place] [address] [place] [address] Re-disclosure Warning The records that you are [...] is protected by Article 27-F of the [facility] Public Health law. If you continue you may have access to information: Regarding HIV / AIDS; Provided by facilities licensed or operated by the [facility] Office of Mental Health; or Provided by the [facility] Office for People With Developmental Disabilities. If such information is present, then the following [facility] mandated warning applies: This information has been [...] law may result in a fine or chcf sentence or both. A general authorization for the release of medical or other information is NOT sufficient authorization for further disc losure. Family History Family Member Name Family Member Gender Family Member Status Date o f Status Description Data Source(s) Unknown Male Problem [facility] ([facility]) Immunizations Vaccine Date Status Description Data Source(s) COVID-19 VACCINE Pfizer 07/03/2020 12:00:00 AM EST completed [facility] Vaccine Series Complete: NOThis Data was Submitted to [facility] Via [employer]. Medications No Information Insurance Providers Payer name Policy type / Coverage type Policy ID Covered green party ID Covered green party's relationship to ross Policy Ross Plan Information [employer] [id number] SP [id number] EAST [id number] SP [id number] SELF PAY EAST [id number] SP [id number] [place] [employer] Commercial [id number] Self [id number] [place] [employer] [id number] Self [id number] EAST ACTIVE DUTY [id number] SP [id number] [place] [employer] [id number] Self [id number] [place] [employer] [place] [id number] 18 [id number] [place] [employer] - [place] [id number] 18 [id number] E[place] [employer] - O/P [id number] 18 [id number] Problems, Conditions, and Diagnoses No Information Surgeries/Procedures No Information Results ID Date Data Source [id number] 05/14/2020 11:48:00 AM EST [facility] Name Value Range Interpretation Code Description Data Sandhya rce(s) Supporting Document(s) SARS coronavirus 2 RNA Not Detected [facility] [place] This lab was ordered by [facility] and reported by [facility]. Procedure Social History No Information
--- NOTE | 2021-04-16 10:09 | ECGEPIP ---
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
== END 2021-04-14 10:12 | disposition left against medical advice (07) ==
LOC: M ED 06:33
DX: Z53.21 Procedure and treatment not carried out due to patient leaving prior to being seen by health care provider (principal)